=== PATIENT | male | born 1985 | race Caucasian/White ===

== ENCOUNTER 2016-10-26 16:32 | Emergency (ER) | payer OTHER ==
[~2016-10-26] VITALS: Ht 182.9 cm; Wt 94.5 kg
[2016-10-26 16:36] VITALS: Ht 182.9 cm; Wt 94.5 kg
--- NOTE | 2016-10-26 16:54 | ERD ---
ER Documentation Chief Complaint Date/Time DATE: 10/26/16 TIME: 16:40 Chief Complaint COmplains of sorethroat with pain x 3 days HPI This 31-year-old Azerbaijani-speaking male patient presents to emergency department today with his family for evaluation of a left-sided sore throat. Symptoms started 3 days ago, patient reports he is having difficulty swallowing. His saliva feels thick. Patient denies any fever, fatigue, body aches. Patient has no change in appetite, reports pain with swallowing that he is able to eat and drink without deficit. Patient denies any sick contacts at work or at home that he is aware of. ROS All systems reviewed and are negative except as per history of present illness. Physical Exam Vitals Vital Signs Date Time Temp Pulse Resp B/P Pulse Ox O2 Delivery O2 Flow Rate FiO2 10/26/16 16:36 98.3 92 20 131/74 98 Vitals stable, triage notes reviewed Physical Exam Const: No acute distress Head: Atraumatic Eyes: Normal Conjunctiva, PERRLA, EOMI ENT: Tympanic membranes translucent, auditory canals are clear, nasal mucosa moist, without turbinate edema, pharynx is erythemic, tonsils +1 soft no exudate , uvula is midline nonswollen without shift, rises and falls with pronation. Neck: Full range of motion.. No cervical chain nodes palpable Resp: Chest rises and falls symmetrically, clear to auscultation bilaterally no respiratory distress Cardio: Abd: Skin: No petechiae or rashes Back: Ext: Neur: Awake and alert Psych: Normal Mood and Affect Procedures/MDM This pleasant 31-year-old Azerbaijani-speaking male patient, translation provided by [employer] maria c, presents to emergency department with 3 day history of sore throat, thick saliva, and pain with swallowing. Patient has no other complaints , denies runny nose nasal congestion fever chills body aches. Strep pharyngitis is unlikely, Centor score is 1, 5%-10% probability of strep pharyngitis. Patient will be treated for a viral pharyngitis with [place]. Patient to return to emergency department for difficulty swallowing saliva, or water, his speech is not clear, or worsening of today's symptoms not responding to plan of care. Increase fluids, increase rest, I feel the patient is stable for discharge at this time and outpatient management by primary care physician. I have discussed results, examination findings, the treatment plan with the patient and family present prior to discharge. Indications for emergent reevaluation, side effects of medication were also discussed. All questions were answered. Patient verbalizes understanding and agrees with plan of care. Departure Diagnosis: Primary Impression: Pharyngitis, acute Pharyngitis/tonsillitis etiology: unspecified etiology Qualified Code: J02.9 - Acute pharyngitis, unspecified etiology Condition: Good Patient Instructions: Self-Care for Sore Throats Additional Instructions: Thank you for for coming to [facility] for your care today. Please ask your nurse or provider if you have questions about your care today and do not leave until all your questions have been answered. Please use any medications given as directed and follow-up with your doctor (or the doctor you were referred to) in the next 2-3 days. If you do not have a primary care doctor you may [place] [facility] [place] ([place] You may also use motrin and tylenol as needed for fever and/or pain unless instructed otherwise by your provider or nurse. Indications for more urgent follow-up have been discussed, but you may return to the Emergency Department at ANY time for any worrisome or worsening symptoms. If you have abdominal pain, please know that no test or exam you received is perfect and you should follow up within 8 hours for continued pain. If you had any imaging studies today, such as an X-Ray or CT Scan, these studies will be reviewed later by a radiologist. You will be called if there are important findings that were not identified today, so make sure the contact information you provided at registration is correct. If you received any narcotic pain control medicine today, such as Vicodin, Morphine or Dilaudid, your coordination and judgment may be affected for a number of hours. Please do not drive or operate heavy machinery, and you may want someone to assist you at home. If you were given a prescription for narcotic medication, be aware that it is very addictive- use sparingly and only if necessary. LASHAY DONOVAN October 26, 2016 16:53
[2016-10-26] MEDS ORDERED: P EP PO (16:57)
[2016-10-26] MEDS ORDERED: UDROBDM PO (16:59)
== END 2016-10-26 16:59 | disposition home or self-care (01) ==
LOC: E/R 16:32
DX: J02.9 Acute pharyngitis, unspecified (principal)
CPT/HCPCS: 99283

== ENCOUNTER 2017-01-01 07:06 | Emergency (ER) | payer OTHER ==
[~2017-01-01] VITALS: Ht 175.3 cm; Wt 93.5 kg
[~2017-01-01 07:06] MED LIST: P EP PO; UDROBDM PO
[2017-01-01 07:10] VITALS: Ht 175.3 cm; Wt 93.5 kg
[2017-01-01] MEDS ORDERED: LIDOCAINE 1% (MDV) 20 ML INJ SC ONE (08:30)
[2017-01-01] MEDS ORDERED: IBUP-1542 PO (08:52)
[2017-01-01] MEDS ORDERED: SULF1TAB31 PO (08:52)
[2017-01-01] MEDS ORDERED: CEPH-443 PO (08:52)
--- NOTE | 2017-01-01 09:16 | ERD ---
ER Documentation Chief Complaint Date/Time DATE: 01/01/17 TIME: 09:03 Chief Complaint RIGHT HIP REDNESS AND RIGHT BUTTOCK PRESSURE SORE HPI 31-year-old male is complaining of right buttock open sore and the right groin pain and swelling 2 weeks. His also has similar redness and swelling of her buttocks for the last 5 days. Denies fever or chills. ROS All systems reviewed and are negative except as per history of present illness. Medications Home Meds Active Scripts Ibuprofen* (Motrin*) 600 Mg Tab, 600 MG PO Q6H Y for PAIN AND OR ELEVATED TEMP, #30 TAB Prov:JOY CHILDERS. CHRONIC CARE NURSE 01/01/17 Cephalexin* (Keflex*) 500 Mg Capsule, 500 MG PO QID for 7 Days, CAP Prov:JOY CHILDERS CHRONIC CARE NURSE 01/01/17 Sulfamethoxazole/Trimethoprim* (Bactrim Ds* Tablet) 1 Each Tablet, 1 TAB PO BID , #14 TAB Prov:JOY CHILDERS NP 01/01/17 Guaifenesin-Dextromethorphan* (Robitussin* DM) 100MG/10MG/5ML Syrup, 10 ML PO Q6H, #120 ML Prov:ZION,LASHAY 10/26/16 Pseudoephedrine/Acetaminophen (SM PAIN RELIEVER SINUS CAPLET) 1 Each Tablet, 2 EACH PO TID, #20 TAB Prov:ZION,LASHAY 10/26/16 Allergies Allergies: Coded Allergies: No Known Allergy (Unverified , 01/01/17) PMhx/Soc Medical and Surgical Hx: pt denies Medical Hx, pt denies Surgical Hx Hx Substance Use: No Hx Tobacco Use: No Physical Exam Vitals Vital Signs Date Time Temp Pulse Resp B/P Pulse Ox O2 Delivery O2 Flow Rate FiO2 01/01/17 07:10 99.0 86 18 133/77 97 Physical Exam General: Well-developed, well-nourished, conscious and coherent, in no distress Skin: Warm and dry without rash, good texture and turgor. A 2 cm open ulcer on the right buttock, with erythematous border. A 4 cm x 10 cm sized erythematous indurated lesion on the right groin, with fluctuance. Head: Normocephalic without evidence of trauma Eyes: Sclera and conjunctivae normal; pupils equal, round, and reactive to light; extraocular movements are intact Chest: Normal AP diameter. Good expansion without retractions. Nontender. Lungs are clear to auscultate bilaterally with good tidal volume Heart: Regular rate and rhythm. No murmur, rub, or gallops heard Extremities: Full range of motion. Good strength bilaterally. No clubbing, cyanosis, or edema. Peripheral pulses are intact. Sensation intact Neuro: Alert and oriented 4, GCS 15. Cranial nerves grossly intact. Motor and sensory exams nonfocal. Moves all extremities. Speech clear. Gait normal Results 24 hrs Current Medications Medications (Trade) Dose Ordered Sig/Samy Route PRN Reason Start Time Stop Time Status Last Admin Dose Admin Lidocaine (Xylocaine 1% (Mdv) 20 ml) 20 ml ONCE ONCE SC 01/01/17 08:30 01/01/17 08:31 DC Procedures/MDM Procedure note: Incision and Drainage Verbal consent obtained for incision and drainage of patient's abscess. The area was prepped with Betadine. Lidocaine 1% was infiltrated for local anesthesia. After appropriate anesthesia, incision was made using #11 blade. Copious amount of purulent discharge was drained from the abscess. The abscess was probed for loculation. It was then irrigated with 60 ml of NS solution. Iodoform 1/4" packing tape was inserted into the abscess. The wound was then cleaned and dressed. Patient tolerated procedure well. Medical decision-making: Well-appearing 31-year-old male present ED with abscess on the right groin and a open ulcer on the right buttock. His is also seen in the same time for an abscess on the left buttock. All the lesions are likely MRSA infection. No sign of necrotizing fasciitis. No tracking. I doubt sepsis. Patient appears well, stable for discharge and outpatient management. Medical decision making shared with patient and family. Education provided to patient and family. Patient and family expressed understanding of the plan. Medications on discharge: Keflex, Bactrim DS, ibuprofen. Follow-up: Return to eating 2 days for wound check and dressing change. Disclaimer: Inadvertent spelling and grammatical errors are likely due to EHR/ dictation software use and do not reflect on the overall quality of patient care. Also, please note that the electronic time recorded on this note does not necessarily reflect the actual time of the patient encounter. Departure Diagnosis: Primary Impression: Abscess Condition: Stable Patient Instructions: Abscess, Incision And Drainage [facility] Usted se chau hecho un examen mdico de control que le indica que no est en nikole condicin que requiera tratamiento urgente en el Departamento de Emergencia. Un estudio ms profundo y el tratamiento de duque condicin pueden esperar sin ningn riesgo hasta que usted sea atendida/o en el consultorio de duque mdico o nikole cl sabine. Es responsabilidad suya arreglar nikole jason para el seguimiento del char. MANEJO DE CONDICIONES NO URGENTES EN EL FUTURO 1) Si usted tiene un mdico de atencin primaria: Usted debera llamar a duque mdico de atencin primaria antes de venir al departamento de emergencia. Despus de las horas de consultorio, duque doctor o duque asociado/a est disponible por telfono. El mdico o enfermero de santosh en el servicio telefnico puede asesorarle por hunter medio para atender el problema, o char contrario se puede programar nikole jason. 2) Si usted no tiene un mdico de atencin primaria: Llame al mdico o clnica de referencia que aparece abajo kinza las horas de consultorio para hacer nikole jason para que le vean. CLINICAS: [facility] [phone] [facility] [phone] [facility] [phone] [facility] [phone] [facility] [phone] [facility]. [phone] [address] Additional Instructions: Regrese a estas instalaciones dentro de DOS TAM para un examen de seguimiento.Regrese antes si duque condicin se empeora. JOY CHILDERS. RADHA Jan 01, 2017 09:13
--- NOTE | 2017-01-05 11:37 | QN ---
Documentation Comment 01/04/2017: Patient has not came back for follow-up wound check and packing change. Patient is called at home, stated that he will come back later today. 01/05/2017: Patient did not come back to the ER yesterday. He is called again at home, and states that he did go to see his PCP for wound check. JOY CHILDERS NP Jan 05, 2017 11:37
== END 2017-01-01 09:00 | disposition home or self-care (01) ==
LOC: FTE 07:06
DX: L02.31 Cutaneous abscess of buttock (principal); R40.2412 Glasgow coma scale score 13-15, at arrival to emergency department
CPT/HCPCS: 10061; Z7610